=== PATIENT | female | born 1960 | race Caucasian/White ===

== ENCOUNTER → 2019-08-11 | Outpatient (CLI) | payer OTHER ==
[~2019-08-11] MED LIST: BENTYL10 MG PO; HYDROCODONE BIT1 T11 PO; MULTIPLE VITAMI1 TAB PO; NAPROXEN500 M1 PO; SEPTRA DS 800 M1 TAB PO
== END | disposition home or self-care (01) ==
LOC: ORTHO 00:26
DX: M25.511 Pain in right shoulder (principal)